=== PATIENT | female | born 1970 | race Caucasian/White ===

== ENCOUNTER 2018-06-15 09:30 | Inpatient (IN) | payer OTHER ==
[2018-06-15] MEDS ORDERED: ONDANSETRON 4 MG INJ IV (12:30)
[2018-06-15] MEDS ORDERED: morphine 2 MG INJ IV (12:30)
[2018-06-15] MEDS ORDERED: HYDROCODONE/APAP (5/325) TAB PO (12:30)
[2018-06-15] MEDS ORDERED: NACL 0.9% 3 ML SYG IV (12:30)
[2018-06-15] MEDS ORDERED: ZOLPIDEM 5 MG TAB PO (12:30)
[2018-06-15] MEDS: SOD CHLORIDE 0.9% 1,000 ML IV (13:25)
[2018-06-15] MEDS: DOCUSATE SODIUM 100 MG CAP PO (13:26)
[2018-06-15] MEDS: ACETAMINOPHEN 325 MG TAB PO (13:38)
[2018-06-15] MEDS ORDERED: VANCOMYCIN IV PER PHARMACY XX (14:30)
[2018-06-15 14:56] LABS: ADD UMIC YES; UR ASCORBIC ACID NEGATIVE (NEGATIVE); UR BILIRUBIN (Dip) NEGATIVE (NEGATIVE); UR BLOOD (Dip) NEGATIVE (NEGATIVE); UR CLARITY CLEAR (CLEAR); UR COLOR YELLOW (YELLOW); UR GLUCOSE (Dip) 3+ mg/dL (NEGATIVE); UR KETONES (Dip) 1+ mg/dL (NEGATIVE); UR LEUKOCYTE ESTERASE (Dip) TRACE Leu/ul (NEGATIVE); UR NITRITE (Dip) NEGATIVE (NEGATIVE); UR RBC 6 /HPF (0-5); UR SPECIFIC GRAVITY (Dip) 1.032 (1.003-1.030); UR SQUAMOUS EPITHELIAL CELL FEW /HPF (FEW); UR TOTAL PROTEIN (Dip) NEGATIVE (NEGATIVE); UR UROBILINOGEN (Dip) 2+ mg/dL (NEGATIVE); UR WBC 7 /HPF (0-5)
[2018-06-15] MEDS ORDERED: GLUCOSE GEL 15 GRAM TUBE PO ×2 (15:00)
[2018-06-15] MEDS ORDERED: GLUCAGON 1 MG INJ IM (15:00)
[2018-06-15] MEDS ORDERED: GLUCOSE GEL 15 GRAM TUBE BUCCAL (15:00)
[2018-06-15] MEDS ORDERED: DEXTROSE 50% 50 ML SYRINGE IV ×2 (15:00)
[2018-06-15] MEDS: PIPER-TAZO 3.375 GM IV (PMX) 100 ML IVPB (15:31)
[2018-06-15] MEDS: KETOROLAC 30 MG INJ IV (15:35)
[2018-06-15] MEDS: VANCOMYCIN 1.75 GM in SOD CHLORIDE 0.9% 500 ML IVPB (16:30)
[2018-06-15] MEDS: FLUCONAZOLE 200 MG (PMX) 100 ML IVPB (16:38)
[2018-06-15] MEDS: INSULIN ASPART [NOVOLOG] 3 ML PEN SC ×3 (17:48→21:00)
[2018-06-15] MEDS: BETAMETHASONE/CLOTRIMAZOLE 15 GM CR TOP ×2 (17:50→21:42)
[2018-06-15] MEDS: VANCOMYCIN 1.25 GM in SOD CHLORIDE 0.9% 250 ML IVPB (17:51)
[2018-06-15] MEDS: INSULIN GLARGINE [LANTus] (100 UNITS/ML) SYG SC (21:43)
[2018-06-15] MEDS: VANCOMYCIN 1.5 GM in SOD CHLORIDE 0.9% 250 ML IVPB (21:45)
[2018-06-16] MEDS: PIPER-TAZO 3.375 GM IV (PMX) 100 ML IVPB ×4 (00:13→22:21)
[2018-06-16] MEDS: DOCUSATE SODIUM 100 MG CAP PO ×2 (00:14→12:45)
[2018-06-16] MEDS: ACETAMINOPHEN 325 MG TAB PO ×2 (01:19→09:34)
[2018-06-16] MEDS: ACCU-CHEK XX (02:00)
[2018-06-16] MEDS: KETOROLAC 30 MG INJ IV (05:15)
[2018-06-16 08:03] LABS: ADD MAN DIFF? NO
[2018-06-16 08:08] LABS: WHITE BLOOD COUNT 10.1 10^3/ul (4.8-10.8)
[2018-06-16 08:08] LABS: BASOPHILS % 0.3 % (0.0-2.0); EOSINOPHILS # 0.2 10^3/ul (0.0-0.5); EOSINOPHILS % 2.3 % (0.0-7.0); HEMATOCRIT 37.8 % (37.0-47.0); HEMOGLOBIN 12.7 g/dl (12.0-16.0); IMMATURE GRANS #M 0.05 10^3/ul; IMMATURE GRANS % (M) 0.5 %; LYMPHOCYTES # 2.8 10^3/ul (0.8-2.9); LYMPHOCYTES % 27.3 % (15.0-51.0); MEAN CORPUSCULAR HEMOGLOBIN 28.7 pg (29.0-33.0); MEAN CORPUSCULAR HGB CONC 33.6 g/dl (32.0-37.0); MEAN CORPUSCULAR VOLUME 85.3 fl (82.0-101.0); MEAN PLATELET VOLUME 10.3 fl (7.4-10.4); MONOCYTE # 0.9 10^3/ul (0.3-0.9); MONOCYTES % 8.6 % (0.0-11.0); NEUTROPHIL # 6.2 10^3/ul (1.6-7.5); PLATELET COUNT 239 10^3/UL (140-415); RED BLOOD COUNT 4.43 10^6/ul (4.20-5.40); RED CELL DISTRIBUTION WIDTH 12.1 % (11.5-14.5)
[2018-06-16 08:28] LABS: HEMOGLOBIN A1C 10.6 % (0-5.9)
[2018-06-16 08:34] LABS: ANION GAP 9 (8-16); BLOOD UREA NITROGEN 11 mg/dl (7-20); CALCIUM 8.5 mg/dl (8.4-10.2); CARBON DIOXIDE 26 mmol/L (21-31); CHLORIDE 107 mmol/L (97-110); CREATININE 0.35 mg/dl (0.44-1.00); GLUCOSE 138 mg/dl (70-220); MAGNESIUM 1.8 mg/dl (1.7-2.5); PHOSPHORUS 3.4 mg/dl (2.5-4.9); POTASSIUM 3.3 mmol/L (3.5-5.1); SODIUM 139 mmol/L (135-144)
[2018-06-16] MEDS: INSULIN ASPART [NOVOLOG] 3 ML PEN SC ×7 (08:47→20:28)
[2018-06-16] MEDS: BETAMETHASONE/CLOTRIMAZOLE 15 GM CR TOP ×2 (08:49→20:21)
[2018-06-16] MEDS: LISINOPRIL 20 MG TAB PO (08:49)
[2018-06-16] MEDS: VANCOMYCIN 1.25 GM in SOD CHLORIDE 0.9% 250 ML IVPB (08:57)
[2018-06-16] MEDS: FLUCONAZOLE 200 MG (PMX) 100 ML IVPB (15:42)
[2018-06-16] MEDS: BENAZEPRIL 20 MG TAB PO (20:21)
[2018-06-16] MEDS: INSULIN GLARGINE [LANTus] (100 UNITS/ML) SYG SC (20:30)
[2018-06-16 20:31] LABS: VANCOMYCIN,TROUGH 5.8 ug/ml (10.0-20.0)
[2018-06-16] MEDS ORDERED: BENAZEPRIL 40 MG TAB PO (21:00)
[2018-06-17] MEDS: DOCUSATE SODIUM 100 MG CAP PO ×3 (01:13→22:20)
[2018-06-17] MEDS: ACCU-CHEK XX (02:00)
[2018-06-17] MEDS: KETOROLAC 30 MG INJ IV ×2 (03:04→20:34)
[2018-06-17] MEDS: MAGNESIUM HYDROXIDE 30ML CUP PO (03:09)
[2018-06-17] MEDS: PIPER-TAZO 3.375 GM IV (PMX) 100 ML IVPB (05:09)
[2018-06-17] MEDS: VANCOMYCIN 1 GM 250 ML IVPB ×2 (05:48→12:48)
[2018-06-17 06:46] LABS: ADD MAN DIFF? NO
[2018-06-17 06:54] LABS: BASOPHILS % 0.2 % (0.0-2.0); EOSINOPHILS # 0.1 10^3/ul (0.0-0.5); EOSINOPHILS % 1.2 % (0.0-7.0); HEMATOCRIT 40.9 % (37.0-47.0); HEMOGLOBIN 13.7 g/dl (12.0-16.0); IMMATURE GRANS #M 0.06 10^3/ul; IMMATURE GRANS % (M) 0.5 %; LYMPHOCYTES # 3.2 10^3/ul (0.8-2.9); MEAN CORPUSCULAR HEMOGLOBIN 28.3 pg (29.0-33.0); MEAN CORPUSCULAR HGB CONC 33.5 g/dl (32.0-37.0); MEAN CORPUSCULAR VOLUME 84.5 fl (82.0-101.0); MEAN PLATELET VOLUME 10.6 fl (7.4-10.4); MONOCYTE # 0.8 10^3/ul (0.3-0.9); MONOCYTES % 7.3 % (0.0-11.0); NEUTROPHIL # 6.8 10^3/ul (1.6-7.5); NEUTROPHILS % 61.8 % (39.0-77.0); PLATELET COUNT 307 10^3/UL (140-415); RED BLOOD COUNT 4.84 10^6/ul (4.20-5.40); RED CELL DISTRIBUTION WIDTH 12.2 % (11.5-14.5)
[2018-06-17 07:18] LABS: HEMOGLOBIN A1C 10.6 % (0-5.9)
[2018-06-17 07:20] LABS: INR 0.96; PROTIME 12.9 Sec (11.9-14.9)
[2018-06-17 07:42] LABS: ALANINE AMINOTRANSFERASE 22 IU/L (13-69); ALBUMIN 3.6 g/dl (3.3-4.9); ALKALINE PHOSPHATASE 107 IU/L (42-121); ANION GAP 16 (8-16); ASPARTATE AMINO TRANSFERASE 18 IU/L (15-46); BILIRUBIN,INDIRECT 0.2 mg/dl (0-1.1); BILIRUBIN,TOTAL 0.2 mg/dl (0.2-1.3); BLOOD UREA NITROGEN 16 mg/dl (7-20); CALCIUM 9.1 mg/dl (8.4-10.2); CARBON DIOXIDE 26 mmol/L (21-31); CHLORIDE 104 mmol/L (97-110); CREATININE 0.49 mg/dl (0.44-1.00); GLUCOSE 223 mg/dl (70-220); MAGNESIUM 2.1 mg/dl (1.7-2.5); PHOSPHORUS 4.5 mg/dl (2.5-4.9); POTASSIUM 3.7 mmol/L (3.5-5.1); SODIUM 142 mmol/L (135-144); TOTAL PROTEIN 7.2 g/dl (6.1-8.1)
[2018-06-17] MEDS: INSULIN ASPART [NOVOLOG] 3 ML PEN SC ×7 (07:59→20:28)
[2018-06-17] MEDS: BENAZEPRIL 20 MG TAB PO ×2 (08:01→20:13)
[2018-06-17 08:28] LABS: THYROID STIMULATING HORMONE 0.996 MIU/L (0.465-4.680)
[2018-06-17] MEDS ORDERED: DIPHENHYDRAMINE 25 MG CAP PO (13:00)
[2018-06-17] MEDS: BETAMETHASONE/CLOTRIMAZOLE 15 GM CR TOP ×2 (13:00→20:19)
[2018-06-17] MEDS: FLUCONAZOLE 200 MG (PMX) 100 ML IVPB (15:23)
[2018-06-17] MEDS ORDERED: LACTOBACILLUS RHAMNOSUS CAP (19:51)
[2018-06-17] MEDS: ZYVOX 600 MG TAB PO (20:13)
[2018-06-17] MEDS: LACTOBACILLUS RHAMNOSUS CAP PO (20:14)
[2018-06-17] MEDS: INSULIN GLARGINE [LANTus] (100 UNITS/ML) SYG SC (20:17)
[2018-06-18] MEDS: ACCU-CHEK XX (02:00)
[2018-06-18] MEDS: INSULIN ASPART [NOVOLOG] 3 ML PEN SC ×7 (08:00→21:05)
[2018-06-18] MEDS: BETAMETHASONE/CLOTRIMAZOLE 15 GM CR TOP ×2 (08:57→21:06)
[2018-06-18] MEDS: BENAZEPRIL 20 MG TAB PO ×2 (08:57→20:53)
[2018-06-18] MEDS: ZYVOX 600 MG TAB PO ×2 (08:57→20:52)
[2018-06-18] MEDS: LACTOBACILLUS RHAMNOSUS CAP PO ×2 (08:57→20:52)
[2018-06-18] MEDS: DOCUSATE SODIUM 100 MG CAP PO ×2 (08:57→20:52)
[2018-06-18] MEDS: FLUCONAZOLE 200 MG (PMX) 100 ML IVPB (14:37)
[2018-06-18] MEDS: INSULIN GLARGINE [LANTus] (100 UNITS/ML) SYG SC (21:04)
[2018-06-19] MEDS: ACCU-CHEK XX (02:29)
[2018-06-19] MEDS: DOCUSATE SODIUM 100 MG CAP PO ×2 (09:00→20:46)
[2018-06-19] MEDS: ZYVOX 600 MG TAB PO ×2 (09:19→20:47)
[2018-06-19] MEDS: LACTOBACILLUS RHAMNOSUS CAP PO ×2 (09:19→20:47)
[2018-06-19] MEDS: BENAZEPRIL 20 MG TAB PO ×2 (09:20→20:50)
[2018-06-19] MEDS: INSULIN ASPART [NOVOLOG] 3 ML PEN SC ×7 (09:21→20:54)
[2018-06-19] MEDS: BETAMETHASONE/CLOTRIMAZOLE 15 GM CR TOP ×2 (09:23→21:04)
[2018-06-19] MEDS: FLUCONAZOLE 200 MG (PMX) 100 ML IVPB (15:10)
[2018-06-19] MEDS: ENOXAPARIN 40 MG/0.4 ML SYG SC (15:15)
[2018-06-19] MEDS: INSULIN GLARGINE [LANTus] (100 UNITS/ML) SYG SC (21:04)
[2018-06-20] MEDS: ACCU-CHEK XX ×3 (01:59→20:57)
[2018-06-20 06:26] LABS: ADD MAN DIFF? NO
[2018-06-20 06:32] LABS: ABNORMAL IP MESSAGE 1; BASOPHIL # 0.1 10^3/ul (0.0-0.1); BASOPHILS % 0.5 % (0.0-2.0); EOSINOPHILS # 0.1 10^3/ul (0.0-0.5); EOSINOPHILS % 0.5 % (0.0-7.0); HEMATOCRIT 42.9 % (37.0-47.0); HEMOGLOBIN 14.3 g/dl (12.0-16.0); LYMPHOCYTES # 5.3 10^3/ul (0.8-2.9); LYMPHOCYTES % 35.6 % (15.0-51.0); MEAN CORPUSCULAR HEMOGLOBIN 28.5 pg (29.0-33.0); MEAN CORPUSCULAR HGB CONC 33.3 g/dl (32.0-37.0); MEAN CORPUSCULAR VOLUME 85.6 fl (82.0-101.0); MEAN PLATELET VOLUME 10.5 fl (7.4-10.4); MONOCYTE # 1.1 10^3/ul (0.3-0.9); NEUTROPHIL # 8.3 10^3/ul (1.6-7.5); NEUTROPHILS % 55.5 % (39.0-77.0); PLATELET COUNT 390 10^3/UL (140-415); RED BLOOD COUNT 5.01 10^6/ul (4.20-5.40); RED CELL DISTRIBUTION WIDTH 12.2 % (11.5-14.5)
[2018-06-20 06:32] LABS: WHITE BLOOD COUNT 14.9 10^3/ul (4.8-10.8)
[2018-06-20 06:47] LABS: POSITIVE DIFF @See below
[2018-06-20 07:05] LABS: ANION GAP 13 (8-16); BLOOD UREA NITROGEN 25 mg/dl (7-20); CALCIUM 9.5 mg/dl (8.4-10.2); CARBON DIOXIDE 26 mmol/L (21-31); CHLORIDE 104 mmol/L (97-110); CREATININE 0.53 mg/dl (0.44-1.00); GLUCOSE 171 mg/dl (70-220); SODIUM 139 mmol/L (135-144)
[2018-06-20] MEDS: INSULIN ASPART [NOVOLOG] 3 ML PEN SC ×7 (08:10→20:55)
[2018-06-20] MEDS: DOCUSATE SODIUM 100 MG CAP PO ×2 (09:00→20:23)
[2018-06-20] MEDS: BENAZEPRIL 20 MG TAB PO ×2 (10:41→20:19)
[2018-06-20] MEDS: LACTOBACILLUS RHAMNOSUS CAP PO ×2 (10:41→20:19)
[2018-06-20] MEDS: ZYVOX 600 MG TAB PO ×2 (10:41→20:19)
[2018-06-20] MEDS: ENOXAPARIN 40 MG/0.4 ML SYG SC (10:42)
[2018-06-20] MEDS: BETAMETHASONE/CLOTRIMAZOLE 15 GM CR TOP ×2 (10:43→20:56)
[2018-06-20] MEDS: FLUCONAZOLE 200 MG (PMX) 100 ML IVPB (15:32)
[2018-06-20] MEDS: metFORMIN 500 MG TAB PO (17:50)
[2018-06-20] MEDS: INSULIN GLARGINE [LANTus] (100 UNITS/ML) SYG SC (20:54)
[2018-06-21] MEDS: ACCU-CHEK XX ×5 (02:19→21:00)
[2018-06-21] MEDS: INSULIN ASPART [NOVOLOG] 3 ML PEN SC ×7 (07:55→21:00)
[2018-06-21] MEDS: LACTOBACILLUS RHAMNOSUS CAP PO ×2 (08:40→20:43)
[2018-06-21] MEDS: ZYVOX 600 MG TAB PO ×2 (08:40→20:43)
[2018-06-21] MEDS: BENAZEPRIL 20 MG TAB PO ×2 (08:41→20:47)
[2018-06-21] MEDS: DOCUSATE SODIUM 100 MG CAP PO ×2 (08:41→20:47)
[2018-06-21] MEDS: ENOXAPARIN 40 MG/0.4 ML SYG SC (08:42)
[2018-06-21] MEDS: BETAMETHASONE/CLOTRIMAZOLE 15 GM CR TOP ×2 (08:45→20:48)
[2018-06-21] MEDS: FLUCONAZOLE 200 MG (PMX) 100 ML IVPB (16:33)
[2018-06-21] MEDS: metFORMIN 500 MG TAB PO (17:29)
[2018-06-21] MEDS: INSULIN GLARGINE [LANTus] (100 UNITS/ML) SYG SC (20:43)
[2018-06-21] MEDS: NYSTATIN 30 GM POWDER BTL TOP (20:47)
[2018-06-22] MEDS: ACCU-CHEK XX ×3 (01:35→11:30)
[2018-06-22] MEDS: INSULIN ASPART [NOVOLOG] 3 ML PEN SC ×4 (08:00→12:03)
[2018-06-22] MEDS: DOCUSATE SODIUM 100 MG CAP PO (08:11)
[2018-06-22] MEDS: LACTOBACILLUS RHAMNOSUS CAP PO (08:11)
[2018-06-22] MEDS: ZYVOX 600 MG TAB PO (08:11)
[2018-06-22] MEDS: ENOXAPARIN 40 MG/0.4 ML SYG SC (08:13)
[2018-06-22] MEDS: BENAZEPRIL 20 MG TAB PO (08:14)
[2018-06-22] MEDS: NYSTATIN 30 GM POWDER BTL TOP (08:19)
[2018-06-22] MEDS: BETAMETHASONE/CLOTRIMAZOLE 15 GM CR TOP (08:19)
[2018-06-22] MEDS ORDERED: INSULIN GLARGINE [LANTus] (100 UNITS/ML) SYG SC (21:00)
[2018-06-22] MEDS ORDERED: CLOTRIMAZOLE 1% 30 GM CR TOP (21:00)
[2018-06-23] MEDS ORDERED: FLUCONAZOLE 200 MG TAB PO (09:00)
== END 2018-06-22 16:57 | disposition home or self-care (01) | DRG 759 ==
LOC: PP2 09:30
DX: B37.3 Candidiasis of vulva and vagina (principal); E11.65 Type 2 diabetes mellitus with hyperglycemia; N76.2 Acute vulvitis; B95.62 Methicillin resistant Staphylococcus aureus infection as the cause of diseases classified elsewhere; L30.4 Erythema intertrigo; I10 Essential (primary) hypertension; E66.9 Obesity, unspecified; Z68.32 Body mass index [BMI] 32.0-32.9, adult
CPT/HCPCS: 80048; 80053; 80202; 81001; 82962; 83036; 83735; 84100; 84443; 85025; 85610; 87045; 87070

== ENCOUNTER 2018-07-09 11:42 | Emergency (ER) | payer OTHER ==
[2018-07-09] MEDS: CEPHALEXIN 500 MG CAP PO (12:24)
[2018-07-09] MEDS: TRIMETHOPRIM/SULFAMETHOX (DS) TAB PO (12:25)
[2018-07-09] MEDS: IBUPROFEN 600 MG TAB PO (12:25)
[2018-07-09] MEDS: LIDOCAINE 1% (MDV) 20 ML INJ SC (12:31)
[2018-07-09] MEDS: LIDOCAINE 1% (MDV) 50 ML INJ SC (13:05)
== END 2018-07-09 13:27 | disposition home or self-care (01) ==
LOC: FTE 11:42
DX: L02.415 Cutaneous abscess of right lower limb (principal); I10 Essential (primary) hypertension; E11.9 Type 2 diabetes mellitus without complications; Z79.4 Long term (current) use of insulin
CPT/HCPCS: 10060; 99283-25

== ENCOUNTER 2018-09-25 10:45 | Emergency (ER) | payer OTHER ==
[2018-09-25 12:11] LABS: ADD MAN DIFF? NO
[2018-09-25 12:15] LABS: BASOPHIL # 0.1 10^3/ul (0.0-0.1); BASOPHILS % 0.5 % (0.0-2.0); EOSINOPHILS # 0.2 10^3/ul (0.0-0.5); EOSINOPHILS % 1.9 % (0.0-7.0); HEMATOCRIT 40.7 % (37.0-47.0); HEMOGLOBIN 13.7 g/dl (12.0-16.0); LYMPHOCYTES # 4.1 10^3/ul (0.8-2.9); LYMPHOCYTES % 41.1 % (15.0-51.0); MEAN CORPUSCULAR HEMOGLOBIN 28.7 pg (29.0-33.0); MEAN CORPUSCULAR HGB CONC 33.7 g/dl (32.0-37.0); MEAN CORPUSCULAR VOLUME 85.3 fl (82.0-101.0); MEAN PLATELET VOLUME 9.9 fl (7.4-10.4); MONOCYTE # 0.8 10^3/ul (0.3-0.9); MONOCYTES % 8.1 % (0.0-11.0); NEUTROPHIL # 4.8 10^3/ul (1.6-7.5); NEUTROPHILS % 48.1 % (39.0-77.0); PLATELET COUNT 304 10^3/UL (140-415); RED BLOOD COUNT 4.77 10^6/ul (4.20-5.40); RED CELL DISTRIBUTION WIDTH 12.1 % (11.5-14.5)
[2018-09-25] MEDS: SOD CHLORIDE 0.9% 1,000 ML IV (12:19)
[2018-09-25] MEDS: PIPER-TAZO 3.375 GM IV (PMX) 100 ML IVPB (12:19)
[2018-09-25] MEDS: KETOROLAC 30 MG INJ IV (12:19)
[2018-09-25 12:38] LABS: ALANINE AMINOTRANSFERASE 30 IU/L (13-69); ALBUMIN 5.1 g/dl (3.3-4.9); ALBUMIN/GLOBULIN RATIO 1.88; ALKALINE PHOSPHATASE 115 IU/L (42-121); ANION GAP 13 (5-13); ASPARTATE AMINO TRANSFERASE 27 IU/L (15-46); BILIRUBIN,INDIRECT 0.3 mg/dl (0-1.1); BILIRUBIN,TOTAL 0.3 mg/dl (0.2-1.3); BLOOD UREA NITROGEN 18 mg/dl (7-20); CALCIUM 9.3 mg/dl (8.4-10.2); CARBON DIOXIDE 26 mmol/L (21-31); CHLORIDE 103 mmol/L (97-110); CREATININE 0.57 mg/dl (0.44-1.00); Estimated GFR > 60 mL/min (>60); GLUCOSE 277 mg/dl (70-220); POTASSIUM 3.8 mmol/L (3.5-5.1); SODIUM 142 mmol/L (135-144); TOTAL PROTEIN 7.8 g/dl (6.1-8.1)
== END 2018-09-25 14:55 | disposition home or self-care (01) ==
LOC: E/R 10:45
DX: N76.4 Abscess of vulva (principal); R40.2142 Coma scale, eyes open, spontaneous, at arrival to emergency department; R40.2362 Coma scale, best motor response, obeys commands, at arrival to emergency department; R40.2252 Coma scale, best verbal response, oriented, at arrival to emergency department; E11.9 Type 2 diabetes mellitus without complications; I10 Essential (primary) hypertension; Z79.4 Long term (current) use of insulin
CPT/HCPCS: 80053; 85025; 96374; 96375; 99284-25